=== PATIENT | male | born 1985 | race Caucasian/White ===

== ENCOUNTER 2020-04-20 19:38 | Emergency (ER) | payer BC, SELFPAY ==
[2020-04-20 19:47] VITALS: BP 147/86; PULSE 75; RESP 14; TEMP 37.1; O2SAT 99; BMI 39.7
--- NOTE | 2020-04-20 19:55 | HMH.EDUTC ---
[facility] [place] Clinical Impression: Viral syndrome, Exposure to COVID-19 virus Sinusitis Qualifiers: Sinusitis location: unspecified location Chronicity: acute Recurrence: non-recurrent Qualified Code(s): J01.90 - Acute sinusitis, unspecified Disposition: Home, Self-Care Condition on Discharge: Good Instructions: DI for Sinusitis, Preventing the Spread of Coronavirus Discharge Instructions Additional Instructions: Drink plenty of fluids. Take tylenol for pain or fever. Return if you begin to have difficulty breathing. Follow up with your regular doctor. GO TO THE ER FOR ANY WORSENING SYMPTOMS Prescriptions: Benzonatate [Tessalon Perle 100mg Cap] 100 mg PO TIDP PRN #30 cap PRN Reason: Cough Transmission Status: Received by Beam. Azithromycin [Z-Faraz 250mg Tab*] 250 mg PO UD DOSE PK #6 tab Transmission Status: Received by [facility]. Referrals: Susan Olivia APRN [Primary Care Provider] - Time of Disposition: 19:58 Medical Decision Making - Medical Records Medical records reviewed: No: I reviewed the patient's medical records. - Jose Inquiry Pt receiving controlled substance: No Vital Signs: 04/20/20 19:47 04/20/20 20:19 Temperature 98.7 F 98 F Temperature Source Oral Pulse Rate 0 L Pulse Rate [Left] 75 Respiratory Rate 14 16 Blood Pressure 000/00 L Blood Pressure [Right Arm] 147/86 H Blood Pressure Mean [Right Arm] 106 Blood Pressure Source [Right Arm] Automatic Cuff Blood Pressure Position [Right Arm] Sitting 02 Sat by Pulse Oximetry 99 Oxygen Delivery Method Room Air Orders (Tests/Meds): ORDERS Category Date Time Status Covid-19 Nasal PCR ([facility]) Routine Lab 04/20/20 19:50 [place] [facility] [place] - General Stated complaint: covid symptoms Time Seen by Provider: 04/20/20 19:55 Mode of Arrival: Ambulatory Source of Information: Patient Limitations: No Limitations Description of Symptoms (Recalled from Triage Doc. by RN): chest, head, and nasal congestion HEENT Symptoms (Recalled from RN notes): Yes (nasal congestion) Resp Symptoms (Recalled from RN notes): Yes (chest congestion) Skin Symptoms (Recalled from RN notes): No MS Symptoms (Recalled from RN notes): No Functional Status (Recalled from RN notes): na - History of Present Illness Provider Complaint: He states that since yesterday he has had sinus congestion, sore throat, cough and body aches. He denies any known sick contacts. - Related Data Previous Rx's Medication Instructions Recorded Azithromycin [Z-Faraz 250mg Tab*] 250 mg PO UD DOSE PK #6 tab 04/20/20 Benzonatate [Tessalon Perle 100mg 100 mg PO TIDP PRN #30 cap 04/20/20 Cap] Allergies Allergy/AdvReac Type Severity Reaction Status Date / Time No Known Allergies Allergy Verified 04/20/20 19:46 - Worker's Comp Is this a Worker's Comp case?: No [facility] History - Hepatitis A Screen Drug use history?: No High risk sexual behaviors?: No History of sexually transmitted infection?: No Currently employed?: No Childcare worker?: No Do you have indoor plumbing?: Yes Do you have electricity?: Yes Attestation statement:: This patient has been screened for Hepatitis A risk factors. I have reviewed the patient's past medical history: Yes - Social History Smoking Status: Current every day smoker # Packs/Day (cigarettes): 1 Alcohol Intake: never Occupational Status: employed ROS Obtained: Yes All systems reviewed & no additional complaints - Constitutional Constitutional: Reports body ache, Reports chills, Denies fever(s), Reports poor appetite, Reports malaise - Eyes Eyes: Denies eye discharge - ENT Ears, Nose, Mouth, and Throat: Reports as per HPI - Cardiovascular Cardiovascular: Denies chest pain - Respiratory Respiratory: Denies chest congestion, Reports cough, Denies dyspnea, Denies stridor, Denies wheezing - Gastrointestinal Gastrointestingal: Denies: abdominal pain, diarrhea, nausea, vo
[2020-04-20 20:19] VITALS: BP 000/00; PULSE 0; RESP 16; TEMP 36.6
--- NOTE | 2020-04-21 09:43 | PC.NURSE ---
PATIENT INFORMED OF POSITIVE COVID RESULTS
== END 2020-04-20 20:00 | disposition home or self-care (01) ==
PROVIDERS: Emergency Provider Nurse Practitioner Family; PCP Nurse Practitioner
DX: U07.1 COVID-19 (principal); J01.90 Acute sinusitis, unspecified
CPT/HCPCS: 99202; G0463; U0003

== ENCOUNTER 2023-02-22 17:55 | Emergency (ER) | payer OTHER, SELFPAY ==
[2023-02-22 17:59] VITALS: BP 148/104; PULSE 100; RESP 18; TEMP 37.1; O2SAT 100; BMI 38.7
--- NOTE | 2023-02-22 18:01 | PC.NURSE ---
DR MONSALVE AT BEDSIDE
--- NOTE | 2023-02-22 18:08 | XR_ITS ---
PROCEDURE INFORMATION: Exam: XR Left Hip Exam date and time: 02/22/2023 6:10 PM Age: 37 years old Clinical indication: Hip pain; Left hip; Additional info: L hip pain TECHNIQUE: Imaging protocol: Radiologic exam of the left hip. Views: 2 or 3 views hip with pelvis when performed. COMPARISON: No relevant prior studies available. FINDINGS: Bones/joints: No acute fracture or dislocation. Soft tissues: Unremarkable. IMPRESSION: No acute fracture or dislocation.
--- NOTE | 2023-02-22 18:09 | HMH.EDGENADL ---
Discharge Plan Disposition Patient Disposition: Home, Self-Care Prescriptions Prescriptions: New methocarbamol 500 mg tablet 1,000 mg PO Q8H Qty: 24 0RF lidocaine 5 % adhesive patch,medicated 1 patch topical DAILY Qty: 15 0RF Rx Instructions: leave on most painful area for up to 12 hrs No Action buprenorphine-naloxone 8-2 mg film 1 film SL DAILY Patient Comments: PLACE 1 FILM UNDER THE TONGUE AND ALLOW TO DISSOLVE 1 TIME EACH DAY methylprednisolone 4 mg tablets,dose pack 4 mg PO azelastine 137 mcg (0.1 %) aerosol,spray 1 spray NS BID Patient Comments: SPRAY 1 TIME INTO BOTH NOSTRILS IN THE MORNING AND AT BEDTIME FOR 10 DAYS Referrals Follow up/Referrals: Dwaine Triplett MD [Primary Care Provider] - See instructions Activity Restrictions/Add. Instructions Additional Instructions/Restrictions: At this time it was felt you are safe to be discharged home. If new or worsening symptoms please do not hesitate to return the emergency department. If symptoms persist please follow-up with your family doctor as you are able. Please take your medications as prescribed. Clinical Impressions Clinical Impression: Lumbar back pain, Sciatica Discharge ED Provider: Faustino Brannon General Adult HPI General Chief complaint: PAIN Stated complaint: LT side hip and leg pain Time Seen by Provider: 02/22/23 18:00 Mode of Arrival: Ambulatory Source of Information: Patient Limitations: No Limitations Description of Symptoms (Recalled from ER Triage Doc. by RN): left leg/hip pain for 2 weeks History of Present Illness HPI narrative: Patient is a 37-year-old male on Suboxone who presents emergency department for evaluation of left hip pain. History is obtained by patient at bedside. Patient works in heavy machinery and when he was stepping down had a shooting pain over his left lateral gluteus that intermittently shoots down his left lateral leg, sometimes into the feet. Patient has been able to bear weight however has intermittent significant symptoms causing her to present here for continued evaluation. No trauma. No reported incontinence. No other acute complaints at this time. Related Data Home Medications Medication Instructions Recorded Confirmed azelastine 137 mcg (0.1 %) nasal 1 spray intranasal BID 09/17/21 09/17/21 spray aerosol buprenorphine 8 mg-naloxone 2 mg 1 film sublingual DAILY 09/17/21 09/17/21 sublingual film methylprednisolone 4 mg tablets in 4 mg PO 09/17/21 09/17/21 a dose pack Previous Rx's Medication Instructions Recorded lidocaine 5 % topical patch 1 patch topical DAILY back pain 02/22/23 #15 ea methocarbamol 500 mg tablet 1,000 mg PO Q8H back spasm #24 tabs 02/22/23 Allergies Allergy/AdvReac Type Severity Reaction Status Date / Time No Known Allergies Allergy Verified 09/17/21 13:43 [facility] Disclaimer: The information contained in this section may have been updated after the patient was seen, as this information can be updated by other users. Social History Smoking Status: Current every day smoker alcohol intake: never substance use type: former substance user current occupational status: employed Travel in the last 8 weeks: None household members: spouse and children housing: house ROS Obtained: Yes Systems reviewed as appropriate & no additional complaints except as documented Physical Exam General General appearance: alert and in no apparent distress Head Head exam: atraumatic and normocephalic Eye Eye exam: Present PERRL ENT ENT exam: Present mucous membranes moist Neck Neck exam: Present normal inspection Chest Chest inspection: Present normal inspection and symmetric chest wall rise Respiratory Respiratory exam: Absent respiratory distress Cardiovascular Cardiovascular exam: Present regular rate and normal rhythm Abdominal Exam Abdominal exam: Present soft Extremities Exam Extremities exam: Present normal inspection and other (5 out of 5 strength bilateral lower extremities at the hip, knee, ankle. 2+ dorsal pedal plus on the left.) Back Exam Back exam: Absent tenderness (No midline tenderness) Neurological Exam Neurological exam: Present alert Psychiatric Psychiatric exam: Present normal affect Skin Skin exam: Present warm and dry Medical Decision Making Jose Inquiry Pt receiving controlled substance: No Vital Signs: 02/22/23 17:59 Temperature 98.7 F Temperature Source Oral Pulse Rate [Right Radial] 100 H Respiratory Rate 18 Blood Pressure [Right Arm] 148/104 H Blood Pressure Mean [Right Arm] 118 02 Sat by Pulse Oximetry 100 Oxygen Delivery Method Room Air Orders (Tests/Meds): ED MEDICATIONS Discontinued Medications Generic Name Dose Route Start Last Admin Trade Name Freq PRN Reason Stop Dose Admin Acetaminophen 1,000 mg 02/22/23 18:06 02/22/23 18:13 Acetaminophen 500mg Tab PO 02/22/23 18:07 1,000 mg ONCE ONE Administration Ketorolac Tromethamine 30 mg 02/22/23 18:06 02/22/23 18:14 Ketorolac 30mg/Ml Vial IM 02/22/23 18:07 30 mg ONCE ONE Administration Lidocaine 1 each 02/22/23 18:06 02/22/23 18:14 Lidocaine 5% Transdermal Patch TP 02/22/23 18:07 1 each ONCE ONE Administration Methocarbamol 1,000 mg 02/22/23 18:07 02/22/23 18:14 Methocarbamol 500mg Tablet PO 02/22/23 18:08 1,000 mg ONCE ONE Administration ORDERS Category Date Time Status Hip XR left minimum 2 views [XR hip LT 2-3V w/pelvis] Exams 02/22/23 18:08 Taken Stat Medical Decision Narrative: In summary patient is a 37-year-old male past medical history described above presents emergency department for evaluation of atraumatic hip pain. Patient is hemodynamically stable nontoxic-appearing upon arrival, afebrile. Differential diagnosis includes lumbar ago, sciatica, among others. Given the patient has no red flag symptoms workup with labs and CT imaging was considered but will be deferred. Limited survey will be conducted with plain film of the left hip. Initial inventions include Tylenol, Toradol, methocarbamol, lidocaine patch. X-ray informally interpreted by me, no acute displaced fracture or hip dislocation, no obvious large sclerotic or lytic lesions. Given this patient is appropriate for discharge at this time will be discharged with a course of methocarbamol and lidocaine patches and was educated on projected course and was given return precautions and instructed to follow-up with PCP if symptoms persist Critical Care Critical Care Time Critical Care Time: No
[2023-02-22] MEDS: ACETAMINOPHEN 500MG TAB 1000 MG PO (18:13)
[2023-02-22] MEDS: LIDOCAINE 5% TRANSDERMAL PATCH 1 EACH TP (18:14)
[2023-02-22] MEDS: KETOROLAC 30MG/ML VIAL 30 MG IM (18:14)
[2023-02-22] MEDS: METHOCARBAMOL 500MG TABLET 1000 MG PO (18:14)
--- NOTE | 2023-02-22 18:17 | PC.NURSE ---
PT TO XR
--- NOTE | 2023-02-22 18:24 | PC.NURSE ---
PT RETURNED FROM XR
[2023-02-22 18:39] VITALS: BP 157/91; PULSE 100; RESP 20; TEMP 36.9
== END 2023-02-22 18:40 | disposition home or self-care (01) ==
PROVIDERS: Emergency Provider Emergency Medicine; PCP Family Medicine
DX: M54.42 Lumbago with sciatica, left side (principal); M25.552 Pain in left hip; M79.605 Pain in left leg; F17.210 Nicotine dependence, cigarettes, uncomplicated; X50.0XXA Overexertion from strenuous movement or load, initial encounter
CPT/HCPCS: 73502; 96372; 99283

== ENCOUNTER 2023-09-17 04:41 | Inpatient (IN) | payer OTHER, SELFPAY ==
[2023-09-17] VITALS (18 sets, daily range): BP systolic 123–148; BP diastolic 65–96; PULSE 87–130; RESP 16–20; TEMP 36.6–37.4; O2SAT 88–95; BMI 39.9; BMI 38.5
--- NOTE | 2023-09-17 04:47 | XR_ITS ---
PROCEDURE INFORMATION: Exam: XR Chest Exam date and time: 09/17/2023 4:48 AM Age: 38 years old Clinical indication: Cough and shortness of breath; Additional info: SOA cough covid TECHNIQUE: Imaging protocol: Radiologic exam of the chest. Views: 2 views. COMPARISON: No relevant prior studies available. FINDINGS: Lungs: Bilateral patchy predominantly lower and central airspace opacities. Pleural spaces: Unremarkable. No pleural effusion. No pneumothorax. Heart/Mediastinum: Unremarkable. No cardiomegaly. Bones/joints: Unremarkable. IMPRESSION: Findings which can be seen in COVID type pneumonia, multifocal bacterial pneumonia. Correlate clinically.
--- NOTE | 2023-09-17 04:55 | PC.NURSE ---
Kathy in [facility] notified of VBG in lab
[2023-09-17 05:01] LABS: Lactate Venous 1.6 mmol/L (0.4-2.0); VBG Base Excess 1.1 mmol/L (-2.4-2.3); VBG HCO3 25.6 mmol/L (23-30); VBG Oxygen Saturation 77.3 % (50-70); VBG PCO2 40.5 mmol/L (35-51); VBG PH 7.42 mmol/L (7.31-7.41); VBG PO2 41.5 mmol/L (28-40); VBG Total CO2 26.8 mmol/L (23-27)
[2023-09-17 05:04] LABS: Basophils % 0.2 % (0.1-2.0); Eosinophils % 0.3 % (0.1-12.0); Hematocrit 43.3 % (42.0-52.0); Hemoglobin 14.5 g/dL (14.1-18.0); Lymphocytes # 0.8 K/mm3 (0.7-4.5); Lymphocytes % 7.4 % (10-50); Mean Corpuscular HGB Conc 33.5 g/dL (31.8-35.4); Mean Corpuscular Hemoglobin 29.6 pg (27.0-31.2); Mean Corpuscular Volume 88.4 fl (80-94); Mean Platelet Volume 7.7 fl (7.4-10.4); Monocytes # 0.3 K/mm3 (0.1-1.0); Monocytes % 2.9 % (1.7-9.3); Neutrophils # 10.2 K/mm3 (1.8-7.8); Neutrophils % 89.3 % (37.0-80.0); Platelet Count 240 K/mm3 (142-424); Red Blood Count 4.89 M/mm3 (4.60-6.20); Red Cell Distribution Width 14.5 % (11.5-17.5); White Blood Count 11.5 K/mm3 (4.8-10.8)
--- NOTE | 2023-09-17 05:04 | ECG_ITS ---
APPROVED REPORT Exam: Resting ECG HR:105 bpm ECG Measurements Heart Rate 105 AXES CA 172 P 13 QRSd 109 QRS 7 QT 346 T 44 QTc 407 Conclusion SINUS TACHYCARDIA NONSPECIFIC ST & T-WAVE ABNORMALITY ABNORMAL RHYTHM ECG Electronically signed by : LISA VILLEDA, 09/17/2023 07:28:39
[2023-09-17 05:06] LABS: Albumin Level 4.4 g/dl (3.5-5.0); Chloride 101 mmol/L (98-107); Potassium 4.3 mmoL/L (3.5-5.1); Sodium 136 mmol/L (136-145)
[2023-09-17 05:08] LABS: Blood Urea Nitrogen 12 mg/dl (9-20); Creatinine Clearance Estimated 300 mL/min (50-200); Estimated Glomerular Filt Rate 128 ml/min (>60); GFR (African American) 154 ML/MIN (>60)
[2023-09-17 05:09] LABS: Alanine Aminotransferase 53 U/L (12-78); Albumin/Globulin Ratio 1.3 (1.1-1.8); Alkaline Phosphatase 75 U/L (38-126); Anion Gap 10.3 mEq/L (5-15); Aspartate Amino Transferase 38 U/L (17-59); Bilirubin,Total 1.3 mg/dl (0.2-1.3); Calcium 8.6 mg/dl (8.4-10.2); Carbon Dioxide 29 mmol/L (22.0-30.0); Globulin 3.4 g/dL (1.3-3.2); Glucose 138 mg/dl (74-100); Total Protein,Serum 7.8 g/dl (6.3-8.2)
[2023-09-17] MEDS: LACTATED RINGERS 1000ML 1,000 ML 999 ML IV (05:09)
[2023-09-17 05:10] LABS: INR 0.98 (0.9-1.1)
[2023-09-17 05:12] LABS: MANUAL DIFFERENTIAL MANUAL DIFFERENTIAL (MANUAL DIFF)
[2023-09-17] MEDS: IPRATROPIUM/ALBUTEROL 3 ML NEB 9 ML IH (05:12)
--- NOTE | 2023-09-17 05:15 | HMH.EDGENADL ---
Discharge Plan Disposition Patient Disposition: Admitted Chief Complaint: Upper Respiratory Infection Prescriptions Prescriptions: No Action albuterol sulfate 90 mcg/actuation HFA aerosol inhaler 2 puff inhalation Q6H PRN (Reason: shortness of breath or wheezing) Qty: 6.7 2RF buprenorphine-naloxone 2-0.5 mg film 1 film sublingual Patient Comments: PLACE 1 FILM UNDER THE TONGUE AND ALLOW TO DISSOLVE 1 TIME EACH DAY sulfamethoxazole-trimethoprim 800-160 mg tablet 1 tab PO BID Qty: 20 0RF jttewztlixobztz-vhrdkefoh-PF [Bromfed DM] 2-30-10 mg/5 mL syrup 10 ml PO Q4-6H PRN (Reason: cold symptoms) Qty: 473 1RF prednisone 50 mg tablet 50 mg PO DAILY Qty: 7 0RF Referrals Follow up/Referrals: Provider,Referral, [Primary Care Provider] - See instructions Clinical Impressions Clinical Impression: Pneumonia due to COVID-19 virus, Acute hypoxemic respiratory failure Print Language Print Language: French Discharge ED Provider: Declan Freire General Adult HPI <Beatriz Interiano MD - Last Filed: 09/17/23 07:32> General Chief complaint: Upper Respiratory Infection Stated complaint: getting over covid, chest tightness Time Seen by Provider: 09/17/23 04:47 Mode of Arrival: Ambulatory Source of Information: Patient Limitations: No Limitations Description of Symptoms (Recalled from ER Triage Doc. by RN): Pt. presented to the ED with c/o cough, congestion, shortness of breath, chest tightness. Pt. had a positive COVID home test Thursday. History of Present Illness HPI narrative: 38-year-old male presents to the ER for concerns of cough, congestion, difficulty breathing, chest tightness, pain in his chest with coughing. Patient states he had a positive COVID test Thursday. He has been prescribed Bromfed and prednisone. He has been taking these. Patient states he has had symptoms since , tested positive on Thursday, but continues to feel worse. He states he did have fever yesterday, has not had fever today. Patient reports family history of asthma. My review of previous records demonstrates he has been treated with albuterol in the past. He states he has been taking this every 6 hours including approximately 1 hour prior to arrival. Family at bedside reports patient was wheezing quite a bit yesterday. Patient presented hypoxic on room air to the ER. He has no history of blood clot, no personal cardiac history. Related Data Home Medications ?Medication ?Instructions ?Recorded ?Confirmed buprenorphine 2 mg-naloxone 0.5 mg 1 film sublingual 04/23/23 09/01/23 sublingual film Previous Rx's ?Medication ?Instructions ?Recorded albuterol sulfate 90 mcg/actuation 2 puff inhalation Q6H PRN 09/01/23 aerosol inhaler shortness of breath or wheezing #6.7 grams sulfamethoxazole 800 1 tab PO BID #20 tabs 09/07/23 mg-trimethoprim 160 mg tablet pogqtqvldpxzxaz-pvmjrtpvpvuzotu-TN 10 ml PO Q4-6H PRN cold symptoms 09/15/23 2 mg-30 mg-10 mg/5 mL oral syrup #473 mL (Bromfed DM) prednisone 50 mg tablet 50 mg PO DAILY #7 tabs 09/16/23 Allergies Allergy/AdvReac Type Severity Reaction Status Date / Time No Known Allergies Allergy Verified 09/01/23 14:41 PFSH <Beatriz Interiano MD - Last Filed: 09/17/23 07:32> [facility] Disclaimer: The information contained in this section may have been updated after the patient was seen, as this information can be updated by other users. Medical History No significant family history Lumbar back pain Sciatica Surgical History No significant past surgical history Social History Smoking Status: Current every day smoker second hand exposure: No alcohol intake: never substance use type: former substance user current occupational status: employed Travel in the last 8 weeks: None household members: spouse and children housing: house marital status: <Beatriz Interiano MD - Last Filed: 09/17/23 07:32> ROS Obtained: Yes All systems reviewed & no additional complaints except as documented Constitutional Constitutional: Reports fever(s), Denies headache(s) and Denies weakness Eyes Eyes: Denies change in vision ENT Ears, Nose, Mouth, and Throat: Denies dizziness, Denies headache(s), Denies nasal congestion and Denies sore throat Cardiovascular Cardiovascular: Reports chest pain, Denies dyspnea and Denies leg edema Respiratory Respiratory: Reports shortness of breath, Reports cough, Reports non-productive cough and Denies dyspnea Gastrointestinal Gastrointestingal: Denies constipation, diarrhea, nausea or vomiting Genitourinary Male Genitourinary: Denies difficulty urinating Musculoskeletal Musculoskeletal: Denies arthralgias, Denies myalgias, Denies numbness and Denies tingling Integumentary/Breasts Skin/Breast: Denies change in pigmentation Neurologic Neurologic: Denies dizziness, Denies headache(s), Denies numbness, Denies tingling and Denies weakness Physical Exam <Beatriz Interiano MD - Last Filed: 09/17/23 07:32> General General appearance: alert, in no apparent distress and obese Head Head exam: atraumatic and normocephalic Eye Eye exam: Present PERRL and EOMI ENT ENT exam: Present mucous membranes moist Neck Neck exam: Present normal inspection and full ROM Chest Chest inspection: Present symmetric chest wall rise Respiratory Respiratory exam: Absent respiratory distress (Mild tachypnea but not in respiratory distress, saturating 88% on room air, significantly diminished breath sounds throughout), wheezes or stridor Cardiovascular Cardiovascular exam: Present normal rhythm and tachycardia Abdominal Exam Abdominal exam: Present soft; Absent distention, tenderness, guarding or rebound Extremities Exam Extremities exam: Present full ROM Neurological Exam Neurological exam: Present alert and oriented X3; Absent motor sensory deficit Psychiatric Psychiatric exam: Present normal affect and normal mood Skin Skin exam: Present warm and dry Medical Decision Making <Beatriz Interiano MD - Last Filed: 09/17/23 07:32> Medical Records Medical records reviewed: Yes I reviewed the patient's medical records. MR Comment: See HPI Jose Inquiry Pt receiving controlled substance: No Vital Signs: 09/17/23 04:47 09/17/23 05:13 09/17/23 05:15 Temperature 99.2 F Temperature Source Oral Pulse Rate 102 H 104 H Pulse Rate [Left] 117 H Respiratory Rate 20 Blood Pressure 135/75 Blood Pressure [Left Arm] 146/93 H Blood Pressure Mean [Left Arm] 110 Blood Pressure Source Blood Pressure Source [Left Arm] Automatic Cuff Blood Pressure Position Blood Pressure Position [Left Arm] Sitting 02 Sat by Pulse Oximetry 88 L 95 Oxygen Delivery Method Room Air Nasal Cannula Oxygen Flow Rate (LPM) 2 09/17/23 05:15 09/17/23 05:31 09/17/23 06:00 Temperature Temperature Source Pulse Rate 104 H 115 H 123 H Pulse Rate [Left] Respiratory Rate Blood Pressure 147/75 H 146/73 H Blood Pressure [Left Arm] Blood Pressure Mean [Left Arm] Blood Pressure Source Blood Pressure Source [Left Arm] Blood Pressure Position Blood Pressure Position [Left Arm] 02 Sat by Pulse Oximetry 93 L 93 L Oxygen Delivery Method Oxygen Flow Rate (LPM) 09/17/23 06:45 09/17/23 07:15 09/17/23 07:20 Temperature Temperature Source Pulse Rate 128 H 130 H 130 H Pulse Rate [Left] Respiratory Rate 20 20 Blood Pressure 148/75 H Blood Pressure [Left Arm] Blood Pressure Mean [Left Arm] Blood Pressure Source Automatic Cuff Blood Pressure Source [Left Arm] Blood Pressure Position Sitting Blood Pressure Position [Left Arm] 02 Sat by Pulse Oximetry 93 L 88 L 90 L Oxygen Delivery Method Nasal Cannula Nasal Cannula Nasal Cannula Oxygen Flow Rate (LPM) 2 2 4 Lab Data Lab Results 09/17/23 04:48: VBG pH 7.42 H, VBG pCO2 40.5, VBG pO2 41.5 H, VBG HCO3 25.6, VBG Total CO2 26.8, VBG O2 Saturation 77.3 H, VBG Base Excess 1.1, VBG Lactic Acid 1.6 09/17/23 04:55: WBC 11.5 H, RBC 4.89, Hgb 14.5, Hct 43.3, MCV 88.4, MCH 29.6, MCHC 33.5, RDW 14.5, Plt Count 240, MPV 7.7, Neut % (Auto) 89.3 H, Lymph % (Auto) 7.4 L, [place] % (Auto) 2.9, Eos % (Auto) 0.3, Baso % (Auto) 0.2, Neut # (Auto) 10.2 H, Lymph # (Auto) 0.8, [place] # (Auto) 0.3, Eos # (Auto) 0.0, Baso # (Auto) 0.0, Total Counted 100, Neutrophils % (Manual) 88 H, Lymphocytes % (Manual) 11, Monocytes % (Manual) 1 L, Platelet Estimate Normal, RBC Morphology Normal, PT 11.0, INR 0.98, D-Dimer 0.73 H, Sodium 136, Potassium 4.3, Chloride 101, Carbon Dioxide 29, Anion Gap 10.3, BUN 12, Creatinine 0.70, Estimated Creat Clear 300, Estimated GFR 128, Est GFR ( Amer) 154, Glucose 138 H, Calcium 8.6, Total Bilirubin 1.3, AST 38, ALT 53, Alkaline Phosphatase 75, Troponin I < 0.01, NT-Pro-B Natriuret Pep 99.8, Total Protein 7.8, Albumin 4.4, Globulin 3.4 H, Albumin/Globulin Ratio 1.3 09/17/23 04:55 09/17/23 04:55 Orders (Tests/Meds): ED MEDICATIONS Discontinued Medications Generic Name Dose Route Start Last Admin Trade Name Freq PRN Reason Stop Dose Admin Albuterol Sulfate 20 mg 09/17/23 06:00 09/17/23 05:55 Albuterol 0.083% 2.5 Mg/3 Ml [facility] 09/17/23 06:01 20 mg ONCE ONE Administration Albuterol/Ipratropium 9 ml 09/17/23 04:58 09/17/23 05:12 Ipratropium/Albuterol 3 Ml [facility] 09/17/23 04:59 9 ml ONCE ONE Administration Doxycycline Hyclate 100 mg 09/17/23 09:00 09/17/23 05:29 Doxycycline Hycl 100 Mg Tablet PO 09/27/23 08:59 100 mg BID FLAKO Administration Lactated Ringer's 1,000 mls @ 999 mls/hr 09/17/23 04:58 09/17/23 05:09 Lactated Ringer's 1000 Ml Bag IV 09/17/23 05:58 999 mls/hr .Q1H1M ONE Administration Ceftriaxone Sodium 2 gm/ 50 mls @ 100 mls/hr 09/17/23 05:07 09/17/23 05:29 Sodium Chloride IV 09/17/23 05:36 100 mls/hr ONCE ONE Administration Iopamidol 80 ml 09/17/23 05:52 09/17/23 05:53 Iopamidol-370 (76%);100ml Bottle IV 09/17/23 05:53 80 ml ONCE ONE Administration Sodium Chloride 10 ml 09/17/23 05:52 09/17/23 05:53 Sodium Chloride 0.9% 10ml Syr (Rad Only) IV 09/17/23 05:53 10 ml ONCE ONE Administration ORDERS Category Date Time Status CT angio chest PE protocol Stat Cat Scan 09/17/23 05:29 Completed CXR 2 view (NOT portable) [XR chest 2V] Stat Exams 09/17/23 04:47 Completed BNP [NT Pro Brain Natriuretic Pep.] Stat Lab 09/17/23 04:55 Completed CBC w/Auto Diff [Complete Blood Count Auto Diff] Stat Lab 09/17/23 04:55 Completed CMP [Comprehensive Metabolic Panel] Stat Lab 09/17/23 04:55 Completed D-Dimer Stat Lab 09/17/23 04:55 Completed PT INR [Prothrombin Time INR] Stat Lab 09/17/23 04:55 Completed Trop I [Troponin I] Stat Lab 09/17/23 04:55 Completed Troponin I Q3H Lab 09/17/23 08:00 Ordered Troponin I Q3H Lab 09/17/23 11:00 Ordered VBG [Venous Blood Gas] Stat RT 09/17/23 04:48 Completed Medical Decision Narrative: In summary, this 38-year-old male presents to the emergency department today with cough, chest pain, shortness of breath in the setting of recent positive COVID test. On initial evaluation patient is mildly tachycardic, hypoxic on room air, slightly tachypneic, diminished breath sounds throughout, no peripheral edema, no other abnormalities on exam. Differential diagnosis includes but is not limited to viral syndrome, viral pneumonia, bacterial pneumonia, fluid overload, ACS, PE, considered ARDS but have lower suspicion for this given his only mildly ill clinical presentation on arrival. Based on these concerns, I ordered cardiac workup, two-view chest x-ray, serum labs. ECG personally interpreted demonstrates sinus tachycardia, rate 105, normal axis, normal KS and QTc, no STEMI. Patient received DuoNebs, IV fluids for treatment. Labs personally reviewed demonstrate mild leukocytosis, no anemia, PT/INR normal, CMP PE with no actionable electrolyte abnormalities, no findings of of kidney or liver dysfunction, VBG with pH 7.42, no hypercarbia. D-dimer positive, CTA PE ordered. BNP normal. XR personally interpreted demonstrates diffuse patchy infiltrate on my personal interpretation, see radiology read for final interpretation. Given patient's presenting symptoms and findings on chest x-ray, I am treating him with Rocephin and doxycycline. CTAP personally interpreted does not demonstrate obvious large PE but I do appreciate findings consistent with COVID-pneumonia. Contrast timing was poor. After initial DuoNeb's, patient had improvement of air movement, no wheezing, he felt improved so continuous albuterol was administered. He has had increasing tachycardia with these beta agonists which is not surprising. After completing all of these breathing treatments, patient was persistently hypoxic on room air, he is now on 4 L nasal cannula. Likely medication induced VQ mismatch. He requires admission for COVID-pneumonia management. He is already on 50 mg of prednisone orally for the last 2 days, he has not received therefore I have not administered additional steroids in the ER. Patient amenable to plan of admission, hospitalist has been called multiple times for over an hour with no success in reaching them. Patient handed off to Dr. Freire for continued management in anticipation of admission to the hospital, but pending hospitalist conversation. <Declan Freire MD - Last Filed: 09/17/23 07:41> Vital Signs: 09/17/23 04:47 09/17/23 05:13 09/17/23 05:15 Temperature 99.2 F Temperature Source Oral Pulse Rate 102 H 104 H Pulse Rate [Left] 117 H Respiratory Rate 20 Blood Pressure 135/75 Blood Pressure [Left Arm] 146/93 H Blood Pressure Mean [Left Arm] 110 Blood Pressure Source Blood Pressure Source [Left Arm] Automatic Cuff Blood Pressure Position Blood Pressure Position [Left Arm] Sitting 02 Sat by Pulse Oximetry 88 L 95 Oxygen Delivery Method Room Air Nasal Cannula Oxygen Flow Rate (LPM) 2 09/17/23 05:15 09/17/23 05:31 09/17/23 06:00 Temperature Temperature Source Pulse Rate 104 H 115 H 123 H Pulse Rate [Left] Respiratory Rate Blood Pressure 147/75 H 146/73 H Blood Pressure [Left Arm] Blood Pressure Mean [Left Arm] Blood Pressure Source Blood Pressure Source [Left Arm] Blood Pressure Position Blood Pressure Position [Left Arm] 02 Sat by Pulse Oximetry 93 L 93 L Oxygen Delivery Method Oxygen Flow Rate (LPM) 09/17/23 06:45 09/17/23 07:15 09/17/23 07:20 Temperature Temperature Source Pulse Rate 128 H 130 H 130 H Pulse Rate [Left] Respiratory Rate 20 20 Blood Pressure 148/75 H Blood Pressure [Left Arm] Blood Pressure Mean [Left Arm] Blood Pressure Source Automatic Cuff Blood Pressure Source [Left Arm] Blood Pressure Position Sitting Blood Pressure Position [Left Arm] 02 Sat by Pulse Oximetry 93 L 88 L 90 L Oxygen Delivery Method Nasal Cannula Nasal Cannula Nasal Cannula Oxygen Flow Rate (LPM) 2 2 4 Lab Data Lab Results 09/17/23 04:48: VBG pH 7.42 H, VBG pCO2 40.5, VBG pO2 41.5 H, VBG HCO3 25.6, VBG Total CO2 26.8, VBG O2 Saturation 77.3 H, VBG Base Excess 1.1, VBG Lactic Acid 1.6 09/17/23 04:55: WBC 11.5 H, RBC 4.89, Hgb 14.5, Hct 43.3, MCV 88.4, MCH 29.6, MCHC 33.5, RDW 14.5, Plt Count 240, MPV 7.7, Neut % (Auto) 89.3 H, Lymph % (Auto) 7.4 L, [place] % (Auto) 2.9, Eos % (Auto) 0.3, Baso % (Auto) 0.2, Neut # (Auto) 10.2 H, Lymph # (Auto) 0.8, [place] # (Auto) 0.3, Eos # (Auto) 0.0, Baso # (Auto) 0.0, Total Counted 100, Neutrophils % (Manual) 88 H, Lymphocytes % (Manual) 11, Monocytes % (Manual) 1 L, Platelet Estimate Normal, RBC Morphology Normal, PT 11.0, INR 0.98, D-Dimer 0.73 H, Sodium 136, Potassium 4.3, Chloride 101, Carbon Dioxide 29, Anion Gap 10.3, BUN 12, Creatinine 0.70, Estimated Creat Clear 300, Estimated GFR 128, Est GFR ( Amer) 154, Glucose 138 H, Calcium 8.6, Total Bilirubin 1.3, AST 38, ALT 53, Alkaline Phosphatase 75, Troponin I < 0.01, NT-Pro-B Natriuret Pep 99.8, Total Protein 7.8, Albumin 4.4, Globulin 3.4 H, Albumin/Globulin Ratio 1.3 Orders (Tests/Meds): ED MEDICATIONS Discontinued Medications Generic Name Dose Route Start Last Admin Trade Name Freq PRN Reason Stop Dose Admin Albuterol Sulfate 20 mg 09/17/23 06:00 09/17/23 05:55 Albuterol 0.083% 2.5 Mg/3 Ml [facility] 09/17/23 06:01 20 mg ONCE ONE Administration Albuterol/Ipratropium 9 ml 09/17/23 04:58 09/17/23 05:12 Ipratropium/Albuterol 3 Ml [facility] 09/17/23 04:59 9 ml ONCE ONE Administration Doxycycline Hyclate 100 mg 09/17/23 09:00 09/17/23 05:29 Doxycycline Hycl 100 Mg Tablet PO 09/27/23 08:59 100 mg BID FLAKO Administration Lactated Ringer's 1,000 mls @ 999 mls/hr 09/17/23 04:58 09/17/23 05:09 Lactated Ringer's 1000 Ml Bag IV 09/17/23 05:58 999 mls/hr .Q1H1M ONE Administration Ceftriaxone Sodium 2 gm/ 50 mls @ 100 mls/hr 09/17/23 05:07 09/17/23 05:29 Sodium Chloride IV 09/17/23 05:36 100 mls/hr ONCE ONE Administration Iopamidol 80 ml 09/17/23 05:52 09/17/23 05:53 Iopamidol-370 (76%);100ml Bottle IV 09/17/23 05:53 80 ml ONCE ONE Administration Sodium Chloride 10 ml 09/17/23 05:52 09/17/23 05:53 Sodium Chloride 0.9% 10ml Syr (Rad Only) IV 09/17/23 05:53 10 ml ONCE ONE Administration ORDERS Category Date Time Status CT angio chest PE protocol Stat Cat Scan 09/17/23 05:29 Completed CXR 2 view (NOT portable) [XR chest 2V] Stat Exams 09/17/23 04:47 Completed BNP [NT Pro Brain Natriuretic Pep.] Stat Lab 09/17/23 04:55 Completed CBC w/Auto Diff [Complete Blood Count Auto Diff] Stat Lab 09/17/23 04:55 Completed CMP [Comprehensive Metabolic Panel] Stat Lab 09/17/23 04:55 Completed D-Dimer Stat Lab 09/17/23 04:55 Completed PT INR [Prothrombin Time INR] Stat Lab 09/17/23 04:55 Completed Trop I [Troponin I] Stat Lab 09/17/23 04:55 Completed Troponin I Q3H Lab 09/17/23 08:00 Ordered Troponin I Q3H Lab 09/17/23 11:00 Ordered VBG [Venous Blood Gas] Stat RT 09/17/23 04:48 Completed Medical Decision Narrative: In summary, this 38-year-old male presents to the emergency department today with cough, chest pain, shortness of breath in the setting of recent positive COVID test. On initial evaluation patient is mildly tachycardic, hypoxic on room air, slightly tachypneic, diminished breath sounds throughout, no peripheral edema, no other abnormalities on exam. Differential diagnosis includes but is not limited to viral syndrome, viral pneumonia, bacterial pneumonia, fluid overload, ACS, PE, considered ARDS but have lower suspicion for this given his only mildly ill clinical presentation on arrival. Based on these concerns, I ordered cardiac workup, two-view chest x-ray, serum labs. ECG personally interpreted demonstrates sinus tachycardia, rate 105, normal axis, normal KS and QTc, no STEMI. Patient received DuoNebs, IV fluids for treatment. Labs personally reviewed demonstrate mild leukocytosis, no anemia, PT/INR normal, CMP PE with no actionable electrolyte abnormalities, no findings of of kidney or liver dysfunction, VBG with pH 7.42, no hypercarbia. D-dimer positive, CTA PE ordered. BNP normal. XR personally interpreted demonstrates diffuse patchy infiltrate on my personal interpretation, see radiology read for final interpretation. Given patient's presenting symptoms and findings on chest x-ray, I am treating him with Rocephin and doxycycline. CTAP personally interpreted does not demonstrate obvious large PE but I do appreciate findings consistent with COVID-pneumonia. Contrast timing was poor. After initial DuoNeb's, patient had improvement of air movement, no wheezing, he felt improved so continuous albuterol was administered. He has had increasing tachycardia with these beta agonists which is not surprising. After completing all of these breathing treatments, patient was persistently hypoxic on room air, he is now on 4 L nasal cannula. Likely medication induced VQ mismatch. He requires admission for COVID-pneumonia management. He is already on 50 mg of prednisone orally for the last 2 days, he has not received therefore I have not administered additional steroids in the ER. Patient handed off to Dr. Freire for continued management in anticipation of admission to the hospital, but pending hospitalist conversation. Tani: I assumed primary responsibility for this patient after signout from previous physician. On my independent interpretation of results, patient has mild leukocytosis, largely nonactionable labs overall. Patient D-dimer only mildly elevated just over 0.7, but CT PE ordered given degree of hypoxemia. This was negative. On reevaluation, patient still tachycardic in the 120s, saturating in the mid 80%'s on room air, 92% on nasal cannula 4 L. Hospitalist contacted and case was discussed at length. Because patient high risk for clinical decompensation, deemed appropriate for inpatient admission. Results were relayed to patient who voiced understanding and patient was agreeable to inpatient admission and management. Patient was admitted to the hospital for further definitive management. Critical Care <Beatriz Interiano MD - Last Filed: 09/17/23 07:32> Critical Care Time Critical Care Time: No <Declan Freire MD - Last Filed: 09/17/23 07:41> Critical Care Time Critical Care Time: Yes (Respiratory) Attestation: On 09/17/23, the high probability of a clinically significant, sudden or life threatening deterioration of the following system(s) required my full and direct attention, intervention and personal management. The time I documented below is in addition to time spent performing reported procedures but includes the following listed in this critical care notation. Total Time Total Critical Care Time: 45
[2023-09-17 05:21] LABS: Troponin I < 0.01 ng/ml (0.00-0.034)
[2023-09-17 05:26] LABS: D-Dimer 0.73 ug/mL (0.0-0.5)
[2023-09-17] MEDS: DOXYCYCLINE HYCL 100 MG TABLET PO (05:29)
[2023-09-17] MEDS: CEFTRIAXONE SODIUM 2 GM in 0.9 % SODIUM CHLORIDE 50 ML IV (05:29)
--- NOTE | 2023-09-17 05:29 | CT_ITS ---
PROCEDURE INFORMATION: Exam: CTA Chest With Contrast Exam date and time: 09/17/2023 5:48 AM Age: 38 years old Clinical indication: Shortness of breath; Additional info: SOA hypoxia tachy positive dimer covid+ TECHNIQUE: Imaging protocol: Computed tomographic angiography of the chest with contrast. Exam focused on the arteries. 3D rendering (Not supervised by radiologist): MIP and/or 3D reconstructed images were created by the technologist. Radiation optimization: All CT scans at this facility use at least one of these dose optimization techniques: automated exposure control; mA and/or kV adjustment per patient size (includes targeted exams where dose is matched to clinical indication); or iterative reconstruction. Contrast material: ISOVUE; Contrast volume: 80 ml; Contrast route: INTRAVENOUS (IV); COMPARISON: CR XR CHEST 2V 09/17/2023 4:48 AM FINDINGS: Pulmonary arteries: Contrast bolus is not well timed for assessment of the pulmonary arterial vasculature, that being said no filling defect within the main pulmonary artery, right pulmonary artery, left pulmonary artery. No secondary evidence for hemodynamically significant pulmonary embolus. Aorta: Small focus calcified atherosclerotic disease of the aortic arch. Lungs: Ground-glass opacities in the anterior left upper apex. Ground-glass opacities in a bronchovascular pattern of the inferior left lower lobe and lingula. Similar-appearing however less extensive/less severe appearance at the bilateral medial/central lung bases. Pleural spaces: Unremarkable. No pneumothorax. No pleural effusion. Heart: Unremarkable. No cardiomegaly. No pericardial effusion. Lymph nodes: Unremarkable. No enlarged lymph nodes. Bones/joints: Early degenerative change of the thoracolumbar spine. Soft tissues: Unremarkable. IMPRESSION: 1. Limited study due to contrast bolus timing. Within this limitation, no filling defect within the main pulmonary artery, right pulmonary artery, left pulmonary artery. No secondary evidence for hemodynamically significant pulmonary embolus. 2. Nonspecific lung findings, however compatible with COVID pneumonia. 3. Additional nonacute findings as above.
[2023-09-17 05:32] LABS: NT Pro Brain Natriuretic Pep. 99.8 pg/mL (0-125)
[2023-09-17] MEDS: SODIUM CHLORIDE 0.9% 10ML SYR (RAD ONLY) 10 ML IV ×2 (05:53→14:18)
[2023-09-17] MEDS: IOPAMIDOL-370 (76%);100ML BOTTLE 80 ML IV ×2 (05:53→14:18)
[2023-09-17] MEDS: ALBUTEROL 0.083% 2.5 MG/3 ML NEB 20 MG IH (05:55)
[2023-09-17 06:17] LABS: Lymphocytes % 11 % (10-50); Monocytes % 1 % (2-9); Neutrophils % 88 % (42-76); Total Cells Counted 100
[2023-09-17 06:18] LABS: Platelet Estimate Normal; RBC Morphology Normal
--- NOTE | 2023-09-17 06:47 | PC.NURSE ---
Pt. to be admitted. awaiting hospitalist call back .
--- NOTE | 2023-09-17 07:12 | PC.NURSE ---
Filomena Rice rounded on pt. No complaints or needs voiced. Call light within reach
--- NOTE | 2023-09-17 07:37 | PC.NURSE ---
Dr. Freire s/w Dr. Briones for possible admission
--- NOTE | 2023-09-17 07:42 | PC.NURSE ---
Anselmo Guzmán agrees to admit: Tonja PNA, acute hypoxic resp failure. food checkers and cashiers supervisor notified.
--- NOTE | 2023-09-17 07:47 | PC.NURSE ---
0742 CARE MANAGEMENT NOTIFIED OF ADMISSION BED REQUESTED, ADMISSIONS NOTIFIED PT TO ROOM 211.
--- NOTE | 2023-09-17 08:00 | PC.NURSE ---
rounded on pt, updated about admission and the progress of getting him to a bed, family at bs
--- NOTE | 2023-09-17 08:02 | PC.NURSE ---
Gave report to Su Cole RN on Med Surg
[2023-09-17 09:13] LABS: Troponin I < 0.01 ng/ml (0.00-0.034)
[2023-09-17 09:21] LABS: Adenovirus,PCR Not Detected (NotDetected); Bordetella Pertussis Not Detected (NotDetected); Chlamydophila Pneumoniae, PCR Not Detected (NotDetected); Coronavirus 19, PCR Not Detected (NotDetected); Coronavirus 229E Not Detected (NotDetected); Coronavirus NL63 Not Detected (NotDetected); Coronavirus OC43 Not Detected (NotDetected); Coronovirus HKU1,PCR Not Detected (NotDetected); Human Metapneumovirus Not Detected (NotDetected); Influenza A, PCR Not Detected (NotDetected); Influenza AH1, 2009 Not Detected (NotDetected); Influenza AH1, PCR Not Detected (NotDetected); Influenza AH3,PCR Not Detected (NotDetected); Influenza B, PCR Not Detected (NotDetected); Mycoplasma Pneumoniae, PCR Not Detected (NotDetected); Parainfluenza 1, PCR Not Detected (NotDetected); Parainfluenza 2, PCR Not Detected (NotDetected); Parainfluenza 3, PCR Not Detected (NotDetected); Parainfluenza 4, PCR Not Detected (NotDetected); Respiratory Syncytial Virus Not Detected (NotDetected); Rhinovirus/Enterovirus Not Detected (NotDetected)
[2023-09-17] MEDS: ENOXAPARIN 40MG/0.4ML SYRINGE 40 MG SQ (09:35)
--- NOTE | 2023-09-17 09:43 | HMH.PHAINT1 ---
Pharmacy Intervention Comments: HOME MEDICATION LIST VERIFIED USING LIST FROM OUTPATIENT PHARMACY
--- NOTE | 2023-09-17 09:47 | P.CONS_ITS ---
History of Present Illness History of present illness: Mr. Abrams is a 38-year-old male current smoker presented complaining of worsening respiratory distress and pulmonary was called for further evaluation and management. He admits positive home testing for COVID-19 pneumonia. [facility] Disclaimer: The information contained in this section may have been updated after the patient was seen, as this information can be updated by other users. Medical History (Updated 09/17/23 @ 15:22 by Lety Lay MD) Pneumonia No significant family history Lumbar back pain Sciatica Surgical History No significant past surgical history Family History (Updated 09/17/23 @ 09:46 by Tammy Burch, RN) Other No significant family history Social History (Updated 09/17/23 @ 09:46 by Tammy Burch RN) Smoking Status: Current every day smoker second hand exposure: No alcohol intake: never substance use type: former substance user current occupational status: employed Travel in the last 8 weeks: None household members: spouse and children housing: house marital status: Review of Systems Constitutional Constitutional: Reports chills, Reports fatigue, Denies headache(s), Reports lethargy and Denies weakness Eyes Eyes: Denies eye discharge, Denies dry eyes, Denies irritation and Denies itchy eyes ENT Ears, Nose, Mouth, and Throat: Denies dizziness, Denies headache(s), Denies lip swelling and Denies throat swelling *Cardiovascular Cardiovascular: Reports dyspnea and Reports dyspnea on exertion *Respiratory Respiratory: Reports chest congestion, Reports cough, Reports dyspnea, Reports dyspnea on exertion, Denies excessive phlegm production and Reports wheezing *Gastrointestinal Gastrointestinal: Denies abdominal pain, Denies belching and Denies cramping *Musculoskeletal Musculoskeletal: Denies numbness and Denies tingling *Neurologic Neurologic: Denies dizziness, Denies headache(s), Denies numbness, Denies tingling and Denies weakness Psychiatric Psychiatric: Denies homicidal ideation and Denies suicidal ideation Endocrine Endocrine: Reports fatigue and Denies heat intolerance Hematologic/Lymphatic Hematologic/Lymphatic: Denies easy bleeding and Denies lymphadenopathy Allergic/Immunologic Allergic/Immunologic: Denies itchy eyes, Denies lip swelling, Denies throat swelling and Reports wheezing Pulmonology Exam Inpatient Vital signs and Labs for Last 24 Hours: Temp Pulse Resp BP Pulse Ox O2 Del Method O2 Flow Rate 99.3 F 120 H 20 123/65 93 L Nasal Cannula 4 09/17/23 08:10 09/17/23 08:10 09/17/23 08:10 09/17/23 08:10 09/17/23 08:01 09/17/23 09:00 09/17/23 09:00 Laboratory Results - last 24 hr 09/17/23 04:48: VBG pH 7.42 H, VBG pCO2 40.5, VBG pO2 41.5 H, VBG HCO3 25.6, VBG Total CO2 26.8, VBG O2 Saturation 77.3 H, VBG Base Excess 1.1, VBG Lactic Acid 1.6 09/17/23 04:55: WBC 11.5 H, RBC 4.89, Hgb 14.5, Hct 43.3, MCV 88.4, MCH 29.6, MCHC 33.5, RDW 14.5, Plt Count 240, MPV 7.7, Neut % (Auto) 89.3 H, Lymph % (Auto) 7.4 L, [place] % (Auto) 2.9, Eos % (Auto) 0.3, Baso % (Auto) 0.2, Neut # (Auto) 10.2 H, Lymph # (Auto) 0.8, [place] # (Auto) 0.3, Eos # (Auto) 0.0, Baso # (Auto) 0.0, Total Counted 100, Neutrophils % (Manual) 88 H, Lymphocytes % (Manual) 11, Monocytes % (Manual) 1 L, Platelet Estimate Normal, RBC Morphology Normal, PT 11.0, INR 0.98, D-Dimer 0.73 H, Sodium 136, Potassium 4.3, Chloride 101, Carbon Dioxide 29, Anion Gap 10.3, BUN 12, Creatinine 0.70, Estimated Creat Clear 300, Estimated GFR 128, Est GFR ( Amer) 154, Glucose 138 H, Calcium 8.6, Total Bilirubin 1.3, AST 38, ALT 53, Alkaline Phosphatase 75, Troponin I < 0.01, NT-Pro-B Natriuret Pep 99.8, Total Protein 7.8, Albumin 4.4, Globulin 3.4 H, Albumin/Globulin Ratio 1.3 09/17/23 08:15: Troponin I < 0.01 I & O for Labs for Last 24 Hours: Intake & Output 09/14/23 09/15/23 09/16/23 09/17/23 23:59 23:59 23:59 23:59 Weight 308 lb 3 oz Constitutional: Present moderate distress Head: Present normocephalic and atraumatic ENT: Present normal exam, normal oropharynx and mucous membranes moist Neck: Present normal inspection and full ROM Respiratory: Present respiratory distress, diminished air movement and able to speak in complete sentences; Absent wheezes or crackles Cardiac: Present S1/S2, Tachycardia and radial pulses present GI: Present soft and distention; Absent tenderness or guarding Skin: Present intact; Absent cyanosis or jaundice Neuro: Present alert, awake and oriented x 3 Extremities: Present normal inspection; Absent clubbing or cyanosis Psychiatric: Present normal affect and cooperative Meds Home Medications and Allergies Home Medications ?Medication ?Instructions ?Recorded ?Confirmed ?Type buprenorphine 2 mg-naloxone 0.5 mg 1 film sublingual DAILY 04/23/23 09/17/23 History sublingual film albuterol sulfate 90 mcg/actuation 2 puff inhalation Q6H PRN 09/01/23 09/17/23 Rx aerosol inhaler shortness of breath or wheezing #6.7 grams sulfamethoxazole 800 1 tab PO BID #20 tabs 09/07/23 09/17/23 Rx mg-trimethoprim 160 mg tablet [id number]-[id number] 10 ml PO Q4-6H PRN cold symptoms 09/15/23 09/17/23 Rx 2 mg-30 mg-10 mg/5 mL oral syrup #473 mL (Bromfed DM) prednisone 50 mg tablet 50 mg PO DAILY #7 tabs 09/16/23 09/17/23 Rx buprenorphine 8 mg-naloxone 2 mg 1 film sublingual DAILY 09/17/23 09/17/23 History sublingual film New Prescriptions to Start Prescriptions: Allergies Allergy/AdvReac Type Severity Reaction Status Date / Time No Known Allergies Allergy Verified 09/01/23 14:41 Results Laboratory Findings 09/17/23 04:55 09/17/23 04:55 PT/INR, D-dimer PT 11.0 seconds (10.1-12.5) 09/17/23 04:55 INR 0.98 (0.9-1.1) 09/17/23 04:55 D-Dimer 0.73 ug/mL (0.0-0.5) H 09/17/23 04:55 Abnormal lab findings: Abnormal Labs 09/17/23 09/17/23 04:48 04:55 WBC 11.5 H Neut % (Auto) 89.3 H Lymph % (Auto) 7.4 L Neut # (Auto) 10.2 H Neutrophils % (Manual) 88 H Monocytes % (Manual) 1 L D-Dimer 0.73 H VBG pH 7.42 H VBG pO2 41.5 H VBG O2 Saturation 77.3 H Glucose 138 H Globulin 3.4 H Assessment and Plan *Assessment and plan (1) Acute hypoxemic respiratory failure: Status: Acute Category: Medical Code(s): J96.01 - Acute respiratory failure with hypoxia (2) Pneumonia: Status: Acute Category: Medical Code(s): J18.9 - Pneumonia, unspecified organism Plan Current smoker, around 1-1 and half pack a day. Admits positive home testing for COVID-19 pneumonia around last Thursday followed by negative test Thursday. Patient admits continued worsening respiratory symptoms with subjective fevers cough wheezing and shortness of breath. Mild leukocytosis neutrophilic predominant upon admission. CTA upon admission bilateral multifocal pneumonia predominantly in the left lung fox groundglass in left upper lobe and patchy opacities in the left lingula and lower lobe. Contrast timing very sub optimal, No obvious evidence of pulmonary embolism. Plan: Initiate Advair 500 twice daily Continue ceftriaxone and doxycycline pending sputum culture results Follow with comprehensive respiratory viral PCR panel, will initiate COVID- specific treatment based on PCR panel Repeat CTA PE protocol, patient elevated D-dimer no significant pulmonary parenchymal findings in the setting of consistent new onset hypoxia and tachycardia it is appropriate to repeat a CT PE protocol to rule out any pulmonary embolism contributing to his current hypoxic respiratory failure along with his COVID-19 pneumonia.
[2023-09-17 12:21] LABS: Troponin I < 0.01 ng/ml (0.00-0.034)
[2023-09-17] MEDS: BUPRENORPHINE/NALOXONE 8MG/2MG ODT 1.25 EACH SL (12:41)
--- NOTE | 2023-09-17 13:41 | CT_ITS ---
FINAL REPORT TECHNIQUE: Postcontrast axial images of the chest were performed in a CTA protocol. This study was performed with techniques to keep radiation doses as low as reasonably achievable, (ALARA). Individualized dose reduction technique using automated exposure control or adjustment of mA and/or kV according to the patient's size were employed. CLINICAL HISTORY: Hypoxia, TACHY, COVID-positive COMPARISON: Exam performed earlier today. FINDINGS: The heart is normal in size. There is mediastinal and hilar adenopathy, favor reactive over neoplastic. No pleural or pericardial effusion is identified. The thoracic aorta is normal in caliber with no focal aneurysm or dissection identified. There is no filling defect to suggest pulmonary embolism. There are patchy bilateral opacities consistent with bilateral pneumonia, left greater than right. The images of the upper abdomen are unremarkable. IMPRESSION: No evidence for PE on this exam. Patchy bilateral opacities consistent with bilateral pneumonia with likely reactive adenopathy. Reviewed, Interpreted and Dictated by Tomi Kaba III, MD Transcribed by Leann Santiago Authenticated and [facility]
[2023-09-17] MEDS: 0.9 % SODIUM CHLORIDE 50 ML VIAL IV (14:18)
[2023-09-17] MEDS: DEXAMETHASONE 4MG/ML 1ML VIAL 6 MG IV (16:29)
--- NOTE | 2023-09-17 18:17 | EXP.HP ---
History of Present Illness *Admission Date: 09/17/23 *Reason for visit:: SOB *History of present illness: Patient is a 38-year-old male with past medical history of tobacco use, chronic back pain who presents to the hospital due to shortness of breath hypoxia, patient mentions he has been feeling sick for the last 4 days, he has not been improving he started having chills and fevers so decided to come to the hospital. According to patient he smokes half pack per day, he has never been diagnosed with COPD. Patient otherwise denied nausea vomiting diarrhea constipation dysuria. Patient tested positive for COVID-pneumonia at home test. [facility] Disclaimer: The information contained in this section may have been updated after the patient was seen, as this information can be updated by other users. Medical History (Updated 09/17/23 @ 15:22 by Lety Lay MD) Pneumonia No significant family history Lumbar back pain Sciatica Surgical History No significant past surgical history Family History (Updated 09/17/23 @ 09:46 by Tammy Burch RN) Other No significant family history Social History (Updated 09/17/23 @ 09:46 by Tammy Burch RN) Smoking Status: Current every day smoker second hand exposure: No alcohol intake: never substance use type: former substance user current occupational status: employed Travel in the last 8 weeks: None household members: spouse and children housing: house marital status: Review of Systems Review of Systems Review of systems:: pertinent systems reviewed and negative unless documented below Constitutional Constitutional: Denies headache(s) and Denies weakness ENT Ears, Nose, Mouth, and Throat: Denies dizziness and Denies headache(s) *Musculoskeletal Musculoskeletal: Denies numbness and Denies tingling *Neurologic Neurologic: Denies dizziness, Denies headache(s), Denies numbness, Denies tingling and Denies weakness Meds Home Medications and Allergies Home Medications ?Medication ?Instructions ?Recorded ?Confirmed ?Type buprenorphine 2 mg-naloxone 0.5 mg 1 film sublingual DAILY 04/23/23 09/17/23 History sublingual film albuterol sulfate 90 mcg/actuation 2 puff inhalation Q6H PRN 09/01/23 09/17/23 Rx aerosol inhaler shortness of breath or wheezing #6.7 grams sulfamethoxazole 800 1 tab PO BID #20 tabs 09/07/23 09/17/23 Rx mg-trimethoprim 160 mg tablet [id number]-ryzwdbflstlnrrt-JE 10 ml PO Q4-6H PRN cold symptoms 09/15/23 09/17/23 Rx 2 mg-30 mg-10 mg/5 mL oral syrup #473 mL (Bromfed DM) prednisone 50 mg tablet 50 mg PO DAILY #7 tabs 09/16/23 09/17/23 Rx buprenorphine 8 mg-naloxone 2 mg 1 film sublingual DAILY 09/17/23 09/17/23 History sublingual film New Prescriptions to Start Prescriptions: Allergies Allergy/AdvReac Type Severity Reaction Status Date / Time No Known Allergies Allergy Verified 09/01/23 14:41 Exam Data for Last 24 hours Vital signs and Labs for Last 24 Hours: Temp Pulse Resp BP Pulse Ox O2 Del Method O2 Flow Rate 98.1 F 87 18 139/71 95 Nasal Cannula 3 09/17/23 16:00 09/17/23 16:00 09/17/23 16:00 09/17/23 16:00 09/17/23 16:00 09/17/23 16:00 09/17/23 16:00 Laboratory Results - last 24 hr 09/17/23 04:48: VBG pH 7.42 H, VBG pCO2 40.5, VBG pO2 41.5 H, VBG HCO3 25.6, VBG Total CO2 26.8, VBG O2 Saturation 77.3 H, VBG Base Excess 1.1, VBG Lactic Acid 1.6 09/17/23 04:55: WBC 11.5 H, RBC 4.89, Hgb 14.5, Hct 43.3, MCV 88.4, MCH 29.6, MCHC 33.5, RDW 14.5, Plt Count 240, MPV 7.7, Neut % (Auto) 89.3 H, Lymph % (Auto) 7.4 L, [place] % (Auto) 2.9, Eos % (Auto) 0.3, Baso % (Auto) 0.2, Neut # (Auto) 10.2 H, Lymph # (Auto) 0.8, [place] # (Auto) 0.3, Eos # (Auto) 0.0, Baso # (Auto) 0.0, Total Counted 100, Neutrophils % (Manual) 88 H, Lymphocytes % (Manual) 11, Monocytes % (Manual) 1 L, Platelet Estimate Normal, RBC Morphology Normal, PT 11.0, INR 0.98, D-Dimer 0.73 H, Sodium 136, Potassium 4.3, Chloride 101, Carbon Dioxide 29, Anion Gap 10.3, BUN 12, Creatinine 0.70, Estimated Creat Clear 300, Estimated GFR 128, Est GFR ( Amer) 154, Glucose 138 H, Calcium 8.6, Total Bilirubin 1.3, AST 38, ALT 53, Alkaline Phosphatase 75, Troponin I < 0.01, NT-Pro-B Natriuret Pep 99.8, Total Protein 7.8, Albumin 4.4, Globulin 3.4 H, Albumin/Globulin Ratio 1.3 09/17/23 08:15: Troponin I < 0.01 09/17/23 08:42: Chlamy pneumoniae PCR Not detected, Adenovirus (PCR) Not detected, B. pertussis DNA (PCR) Not detected, Coronavirus OC43 (PCR) Not detected, Coronavirus HKU1 (PCR) Not detected, Coronavirus 229E (PCR) Not detected, SARS-CoV-2 (PCR) Not detected, Coronavirus NL63 (PCR) Not detected, Human Metapneumovir PCR Not detected, Influenza A (H1) PCR Not detected, Influ A (H1N1/09) PCR Not detected, Influenza A (H3) PCR Not detected, Influenza Type A (PCR) Not detected, Influenza Type B (PCR) Not detected, M. pneumoniae (PCR) Not detected, Parainfluenza 1 (PCR) Not detected, Parainfluenza 2 (PCR) Not detected, Parainfluenza 3 (PCR) Not detected, Parainfluenza 4 (PCR) Not detected, RSV (PCR) Not detected, Entero/Rhino (PCR) Not detected 09/17/23 11:26: Troponin I < 0.01 I & O for Last 24 hours: Intake & Output 09/14/23 09/15/23 09/16/23 09/17/23 23:59 23:59 23:59 23:59 Intake Total 990 / 990 Balance 990 / 990 Weight 139.791 kg Constitutional Constitutional: no acute distress *Routine HEENT Exam Head: Present normocephalic Eye: Present EOMI and PERRL ENT: Present mucous membranes moist *Routine Neck Exam Neck: Present supple; Absent lymphadenopathy *Routine Respiratory Exam Respiratory: Present CTA bilaterally *Routine Cardiovascular Exam Cardiovascular: Present RRR *Routine Abdominal Exam Abdominal: Present soft and normoactive bowel sounds; Absent tenderness *Routine Rectal Exam Rectal:: deferred *Routine Genitalia Exam Genitalia:: deferred *Routine Extremities Exam Extremities: Absent cyanosis, clubbing or edema *Routine Skin Exam Skin: Present warm; Absent rash *Routine Neurological Exam Neurological: Present alert and oriented X3 Assessment and Plan *Assessment and plan (1) Pneumonia: Status: Acute Category: Medical Code(s): J18.9 - Pneumonia, unspecified organism (2) Acute hypoxemic respiratory failure: Status: Acute Category: Medical Code(s): J96.01 - Acute respiratory failure with hypoxia (3) Pneumonia due to COVID-19 virus: Status: Acute Category: Medical Code(s): U07.1 - COVID-19; J12.82 - Pneumonia due to coronavirus disease 2019 (4) Lumbar back pain: Status: Acute Category: Medical Code(s): M54.50 - Low back pain, unspecified Plan Patient is a 38-year-old male with past medical history of tobacco use, chronic back pain who presents to the hospital due to shortness of breath hypoxia, patient mentions he has been feeling sick for the last 4 days, he has not been improving he started having chills and fevers so decided to come to the hospital. According to patient he smokes half pack per day, he has never been diagnosed with COPD. Patient otherwise denied nausea vomiting diarrhea constipation dysuria. Patient tested positive for COVID-pneumonia at home test. Assessment and plan COVID-19 infection Acute hypoxic respiratory failure secondary to 90% on room air Suspect superimposed multifocal bacterial pneumonia Will start Rocephin, doxycycline Check a sputum cultures Consult pulmonary-appreciate recommendations CTA chest performed did not show groundglass in left lung, patchy opacities in left lung lingula, no evidence of pulmonary embolism Pulmonary recommend to repeat CTA chest rule out PE due to suboptimal CTA chest contrast administration COVID test negative, flu negative Leukocytosis likely secondary to above -Monitor DVT prophylaxis-Lovenox
[2023-09-17] MEDS: FLUTICASONE/SALMETEROL 500/50MCG DISKUS 1 PUFF IH (18:34)
--- NOTE | 2023-09-17 18:35 | PC.NURSE ---
pt has been lying in the bed resting for majority of the shift. when he arrived to the floor he was on 4 LNC and was 95%, now he is on 2 LNC and is 91%-92% tolerating well. pt has not complained of pain. he received dexamethasone IV per MAR and stated he has been coughing up mucous. no further requests at this time, call light within reach.
--- NOTE | 2023-09-17 19:00 | PC.NURSE ---
patient was weaned to RA with sats >90% while sitting and ambulating.
[2023-09-18] VITALS: BP 133/70; PULSE 80; PULSE 95; RESP 16; TEMP 36.7; O2SAT 90
[2023-09-18 04:00] VITALS: BP 147/77; PULSE 82; RESP 16; TEMP 36.7; O2SAT 93; BMI 38.2
[2023-09-18 04:17] VITALS: PULSE 75
--- NOTE | 2023-09-18 05:30 | PC.NURSE ---
Patient is alert and oriented x4. Patient ambulated the hallway earlier this shift with his by his side; patient tolerated ambulation well. Patient was on room air during the beginning of the shift while he was awake. During the night, the patient's oxygen saturations started to slightly drop below 90 (to 88 and 89) during sleep and was placed back onto oxygen 2L nasal cannula; patient's oxygen saturations have remained within 90 and 93. Upon auscultation of lungs, rhonchi was noted during inspiration/exhalation. Patient has not reported any shortness of breath during this shift. Patient is normal sinus rhythm on telemetry. Bowel sounds were active in all quadrants. Patient is currently lying in bed with at bedside. Patient does not have any further complaints at this time. Call light within reach.
[2023-09-18 06:10] LABS: Basophils % 0.4 % (0.1-2.0); Eosinophils % 0.2 % (0.1-12.0); Hematocrit 41.6 % (42.0-52.0); Hemoglobin 13.7 g/dL (14.1-18.0); Lymphocytes # 1.4 K/mm3 (0.7-4.5); Lymphocytes % 16.8 % (10-50); Mean Corpuscular HGB Conc 33.1 g/dL (31.8-35.4); Mean Corpuscular Hemoglobin 29.6 pg (27.0-31.2); Mean Corpuscular Volume 89.6 fl (80-94); Mean Platelet Volume 7.5 fl (7.4-10.4); Monocytes # 0.5 K/mm3 (0.1-1.0); Monocytes % 6.3 % (1.7-9.3); Neutrophils # 6.2 K/mm3 (1.8-7.8); Neutrophils % 76.2 % (37.0-80.0); Platelet Count 250 K/mm3 (142-424); Red Blood Count 4.64 M/mm3 (4.60-6.20); Red Cell Distribution Width 14.6 % (11.5-17.5); White Blood Count 8.2 K/mm3 (4.8-10.8)
[2023-09-18 06:18] LABS: Chloride 105 mmol/L (98-107)
[2023-09-18 06:19] LABS: Potassium 4.1 mmoL/L (3.5-5.1); Sodium 137 mmol/L (136-145)
[2023-09-18 06:22] LABS: Anion Gap 7.1 mEq/L (5-15); Blood Urea Nitrogen 13 mg/dl (9-20); Calcium 8.5 mg/dl (8.4-10.2); Carbon Dioxide 29 mmol/L (22.0-30.0); Creatinine Clearance Estimated 288 mL/min (50-200); Estimated Glomerular Filt Rate 128 ml/min (>60); GFR (African American) 154 ML/MIN (>60); Glucose 109 mg/dl (74-100)
[2023-09-18] MEDS: FLUTICASONE/SALMETEROL 500/50MCG DISKUS 1 PUFF IH (06:37)
--- NOTE | 2023-09-18 06:42 | PC.NURSE ---
Respiratory removed oxygen from patient after breathing treatment. Patient is awake and currently tolerating room air well with an oxygen saturation of 92.
[2023-09-18 08:00] VITALS: BP 132/92; PULSE 89; PULSE 95; RESP 22; TEMP 36.9; O2SAT 93
[2023-09-18] MEDS: BUPRENORPHINE/NALOXONE 8MG/2MG ODT 1.25 EACH SL (08:28)
[2023-09-18] MEDS: DEXAMETHASONE 4MG/ML 1ML VIAL 6 MG IV (08:28)
[2023-09-18 09:33] VITALS: O2SAT 85
--- NOTE | 2023-09-18 09:55 | P.PN_ITS ---
Subjective *Date: 09/18/23 *Time: 11:09 Interval history: Patient denies any new respiratory complaints. Admits continued improvement in his respiratory symptoms. Pulmonology Exam Inpatient Vital signs and Labs for Last 24 Hours: Temp Pulse Resp BP Pulse Ox O2 Del Method O2 Flow Rate 98.4 F 89 22 132/92 H 85 L Room Air 2 09/18/23 08:00 09/18/23 08:00 09/18/23 08:00 09/18/23 08:00 09/18/23 09:33 09/18/23 09:33 09/18/23 08:00 Laboratory Results - last 24 hr 09/17/23 08:42: Chlamy pneumoniae PCR Not detected, Adenovirus (PCR) Not d etected, B. pertussis DNA (PCR) Not detected, Coronavirus OC43 (PCR) Not detected, Coronavirus HKU1 (PCR) Not detected, Coronavirus 229E (PCR) Not detected, SARS-CoV-2 (PCR) Not detected, Coronavirus NL63 (PCR) Not detected, Human Metapneumovir PCR Not detected, Influenza A (H1) PCR Not detected, Influ A (H1N1/09) PCR Not detected, Influenza A (H3) PCR Not detected, Influenza Type A (PCR) Not detected, Influenza Type B (PCR) Not detected, M. pneumoniae (PCR) Not detected, Parainfluenza 1 (PCR) Not detected, Parainfluenza 2 (PCR) Not detected, Parainfluenza 3 (PCR) Not detected, Parainfluenza 4 (PCR) Not detected, RSV (PCR) Not detected, Entero/Rhino (PCR) Not detected 09/17/23 11:26: Troponin I < 0.01 09/18/23 05:50: WBC 8.2 D, RBC 4.64, Hgb 13.7 L, Hct 41.6 L, MCV 89.6, MCH 29.6, MCHC 33.1, RDW 14.6, Plt Count 250, MPV 7.5, Neut % (Auto) 76.2, Lymph % (Auto) 16.8, [place]unders % (Auto) 6.3, Eos % (Auto) 0.2, Baso % (Auto) 0.4, Neut # (Auto) 6.2, Lymph # (Auto) 1.4, [place]unders # (Auto) 0.5, Eos # (Auto) 0.0, Baso # (Auto) 0.0, Sodium 137, Potassium 4.1, Chloride 105, Carbon Dioxide 29, Anion Gap 7.1, BUN 13, Creatinine 0.70, Estimated Creat Clear 288, Estimated GFR 128, Est GFR ( Amer) 154, Glucose 109 H, Calcium 8.5 Temp Pulse Resp BP Pulse Ox O2 Del Method O2 Flow Rate 99.3 F 120 H 20 123/65 93 L Nasal Cannula 4 09/17/23 08:10 09/17/23 08:10 09/17/23 08:10 09/17/23 08:10 09/17/23 08:01 09/17/23 09:00 09/17/23 09:00 Laboratory Results - last 24 hr 09/17/23 04:48: VBG pH 7.42 H, VBG pCO2 40.5, VBG pO2 41.5 H, VBG HCO3 25.6, VBG Total CO2 26.8, VBG O2 Saturation 77.3 H, VBG Base Excess 1.1, VBG Lactic Acid 1.6 09/17/23 04:55: WBC 11.5 H, RBC 4.89, Hgb 14.5, Hct 43.3, MCV 88.4, MCH 29.6, MCHC 33.5, RDW 14.5, Plt Count 240, MPV 7.7, Neut % (Auto) 89.3 H, Lymph % (Auto) 7.4 L, Saunders % (Auto) 2.9, Eos % (Auto) 0.3, Baso % (Auto) 0.2, Neut # (Auto) 10.2 H, Lymph # (Auto) 0.8, Saunders # (Auto) 0.3, Eos # (Auto) 0.0, Baso # (Auto) 0.0, Total Counted 100, Neutrophils % (Manual) 88 H, Lymphocytes % (Manual) 11, Monocytes % (Manual) 1 L, Platelet Estimate Normal, RBC Morphology Normal, PT 11.0, INR 0.98, D-Dimer 0.73 H, Sodium 136, Potassium 4.3, Chloride 101, Carbon Dioxide 29, Anion Gap 10.3, BUN 12, Creatinine 0.70, Estimated Creat Clear 300, Estimated GFR 128, Est GFR ( Amer) 154, Glucose 138 H, Calcium 8.6, Total Bilirubin 1.3, AST 38, ALT 53, Alkaline Phosphatase 75, Troponin I < 0.01, NT-Pro-B Natriuret Pep 99.8, Total Protein 7.8, Albumin 4.4, Globulin 3.4 H, Albumin/Globulin Ratio 1.3 09/17/23 08:15: Troponin I < 0.01 I & O for Labs for Last 24 Hours: Intake & Output 09/15/23 09/16/23 09/17/23 09/18/23 23:59 23:59 23:59 23:59 Intake Total 990 / 1110 540 / 540 Output Total 0 / 0 Balance 990 / 1110 540 / 540 Weight 308 lb 3 oz 308 lb 2.982 oz Intake & Output 09/14/23 09/15/23 09/16/23 09/17/23 23:59 23:59 23:59 23:59 Weight 308 lb 3 oz Constitutional: Present moderate distress Head: Present normocephalic and atraumatic ENT: Present normal exam, normal oropharynx and mucous membranes moist Neck: Present normal inspection and full ROM Respiratory: Present respiratory distress, diminished air movement and able to speak in complete sentences; Absent wheezes or crackles Cardiac: Present S1/S2, Tachycardia and radial pulses present GI: Present soft and distention; Absent tenderness or guarding Skin: Present intact; Absent cyanosis or jaundice Neuro: Present alert, awake and oriented x 3 Extremities: Present normal inspection; Absent clubbing or cyanosis Psychiatric: Present normal affect and cooperative Assessment and Plan *Assessment and plan (1) Acute hypoxemic respiratory failure: Status: Acute Category: Medical Code(s): J96.01 - Acute respiratory failure with hypoxia (2) Pneumonia: Status: Acute Category: Medical Code(s): J18.9 - Pneumonia, unspecified organism (3) Bronchiectasis: Status: Acute Category: Medical Code(s): J47.9 - Bronchiectasis, uncomplicated (4) Hilar lymphadenopathy: Status: Acute Category: Medical Code(s): R59.0 - Localized enlarged lymph nodes (5) Mediastinal lymphadenopathy: Status: Acute Category: Medical Code(s): R59.0 - Localized enlarged lymph nodes Plan Current smoker, around 1-1 and half pack a day. Admits positive home testing for COVID-19 pneumonia around last Thursday followed by negative test Thursday. Patient admits continued worsening respiratory symptoms with subjective fevers cough wheezing and shortness of breath. Mild leukocytosis neutrophilic predominant upon admission. CTA upon admission bilateral multifocal pneumonia predominantly in the left lung fox groundglass in left upper lobe and patchy opacities in the left lingula and lower lobe. Contrast timing very sub optimal, No obvious evidence of p ulmonary embolism. Interval update: Repeat CTA, suboptimal contrast, discussed with radiology, no obvious evidence of segmental pulmonary embolism bilaterally. Comprehensive respiratory viral PCR negative. CT chest lung with the previously noted left lung findings also noted to have right lower lobe bronchiectasis micronodular tree-in-bud opacities concerning for atypical infection/may well be a superimposed bacterial infection for which she has been treated Recommend follow-up with AFB stain cultures to rule out any atypical mycobacterial infections. Afebrile. Hemodynamically stable. Neutrophilic leukocytosis resolved Plan: -Continue oxygen supplementation 1-2 at rest on 3-4 with exertion. Room air saturations at rest today were recorded at 86% with 6-minute walk testing showed significant desaturations to 84%. Continue Advair 500 twice daily Continue ceftriaxone and doxycycline pending sputum culture results, can be weaned to cefdinir prior to discharge Continue prednisone to complete a total of 5-day course Follow with sputum AFB stain sensitivities. # Along with the noted prominent left upper lobe groundglass and left lingular airspace disease patient also noted to have right lower lobe micronodular pattern and bronchiectasis concerning for any other atypical infections. He does also noted to have lymphadenopathy which will which can well be reactive. Will obtain sputum sample for AFB stain cultures prior to discharge. Will also follow as an outpatient basis to document resolution of the noted findings and lymphadenopathy. # Thank you for involving pulmonary in this patient with reevaluation in pulmonary clinic in 1 to 2 weeks post discharge.
[2023-09-18 12:00] VITALS: BP 118/66; PULSE 87; PULSE 90; RESP 20; TEMP 37.1; O2SAT 92
--- NOTE | 2023-09-18 13:56 | PC.NURSE ---
Pt given specimen cup and instructed to cough any sputum into it if possible
--- NOTE | 2023-09-18 14:14 | P.DS_ITS ---
General Admission date:: 09/17/23 Discharge date: 09/18/23 HPI HPI HPI: Patient is a 38-year-old male with past medical history of tobacco use, chronic back pain who presents to the hospital due to shortness of breath hypoxia, patient mentions he has been feeling sick for the last 4 days, he has not been improving he started having chills and fevers so decided to come to the hospital. According to patient he smokes half pack per day, he has never been diagnosed with COPD. Patient otherwise denied nausea vomiting diarrhea constipation dysuria. Patient tested positive for COVID-pneumonia at home test. Hospital Course Hospital Course Hospital Course: Patient presented for SOB and COVID 19 concerns. Patient was diagnosed with PNA - started on IV abx and transitioned to oral cefdinir at discharge, patient qualified for home oxygen as well. Patient found to be 85% of room air. patient was cleared for discharge by pulmonary and recommended 5 day course of prednisone and outpatient follow up. On the date of discharge, the patient reported feeling stable. The patient was found not to be in any acute distress, and no new abnormalities on physical examination. Further, the patient expressed appropriate understanding of, and agreement with, the discharge recommendations, medications, and plan. Time spent 37 mins Exam Data for Last 24 hours Vital signs and Labs for Last 24 Hours: Temp Pulse Resp BP Pulse Ox O2 Del Method O2 Flow Rate 98.7 F 87 20 118/66 92 L Nasal Cannula 2 09/18/23 12:00 09/18/23 12:00 09/18/23 12:00 09/18/23 12:00 09/18/23 12:00 09/18/23 13:00 09/18/23 13:00 Laboratory Results - last 24 hr 09/17/23 08:42: Chlamy pneumoniae PCR Not detected, Adenovirus (PCR) Not detected, B. pertussis DNA (PCR) Not detected, Coronavirus OC43 (PCR) Not detected, Coronavirus HKU1 (PCR) Not detected, Coronavirus 229E (PCR) Not detected, SARS-CoV-2 (PCR) Not detected, Coronavirus NL63 (PCR) Not detected, Human Metapneumovir PCR Not detected, Influenza A (H1) PCR Not detected, Influ A (H1N1/09) PCR Not detected, Influenza A (H3) PCR Not detected, Influenza Type A (PCR) Not detected, Influenza Type B (PCR) Not detected, M. pneumoniae (PCR) Not detected, Parainfluenza 1 (PCR) Not detected, Parainfluenza 2 (PCR) Not detected, Parainfluenza 3 (PCR) Not detected, Parainfluenza 4 (PCR) Not detected, RSV (PCR) Not detected, Entero/Rhino (PCR) Not detected 09/18/23 05:50: WBC 8.2 D, RBC 4.64, Hgb 13.7 L, Hct 41.6 L, MCV 89.6, MCH 29.6, MCHC 33.1, RDW 14.6, Plt Count 250, MPV 7.5, Neut % (Auto) 76.2, Lymph % (Auto) 16.8, [place] % (Auto) 6.3, Eos % (Auto) 0.2, Baso % (Auto) 0.4, Neut # (Auto) 6.2, Lymph # (Auto) 1.4, [place] # (Auto) 0.5, Eos # (Auto) 0.0, Baso # (Auto) 0.0, Sodium 137, Potassium 4.1, Chloride 105, Carbon Dioxide 29, Anion Gap 7.1, BUN 13, Creatinine 0.70, Estimated Creat Clear 288, Estimated GFR 128, Est GFR ( Amer) 154, Glucose 109 H, Calcium 8.5 I & O for Last 24 hours: Intake & Output 09/15/23 09/16/23 09/17/23 09/18/23 23:59 23:59 23:59 23:59 Intake Total 990 / 1110 660 / 660 Output Total 0 / 0 Balance 990 / 1110 660 / 660 Weight 139.791 kg 139.791 kg Constitutional Constitutional: no acute distress *Routine HEENT Exam Head: Present normocephalic Eye: Present EOMI and PERRL ENT: Present mucous membranes moist *Routine Neck Exam Neck: Present supple; Absent lymphadenopathy *Routine Respiratory Exam Respiratory: Present CTA bilaterally *Routine Cardiovascular Exam Cardiovascular: Present RRR *Routine Abdominal Exam Abdominal: Present soft and normoactive bowel sounds; Absent tenderness *Routine Extremities Exam Extremities: Absent cyanosis, clubbing or edema *Routine Skin Exam Skin: Present warm; Absent rash *Routine Neurological Exam Neurological: Present alert and oriented X3 Results Data Completed and Pending Labs on day of discharge: Labs from last 24 hours 09/18/23 09/17/23 05:50 08:42 WBC 8.2 D RBC 4.64 Hgb 13.7 L Hct 41.6 L MCV 89.6 MCH 29.6 MCHC 33.1 RDW 14.6 Plt Count 250 MPV 7.5 Neut % (Auto) 76.2 Lymph % (Auto) 16.8 [place] % (Auto) 6.3 Eos % (Auto) 0.2 Baso % (Auto) 0.4 Neut # (Auto) 6.2 Lymph # (Auto) 1.4 [place] # (Auto) 0.5 Eos # (Auto) 0.0 Baso # (Auto) 0.0 Sodium 137 Potassium 4.1 Chloride 105 Carbon Dioxide 29 Anion Gap 7.1 BUN 13 Creatinine 0.70 Estimated Creat Clear 288 Estimated GFR 128 Est GFR ( Amer) 154 Glucose 109 H Calcium 8.5 Chlamy pneumoniae PCR Not detected Adenovirus (PCR) Not detected B. pertussis DNA (PCR) Not detected Coronavirus OC43 (PCR) Not detected Coronavirus HKU1 (PCR) Not detected Coronavirus 229E (PCR) Not detected SARS-CoV-2 (PCR) Not detected Coronavirus NL63 (PCR) Not detected Human Metapneumovir PCR Not detected Influenza A (H1) PCR Not detected Influ A (H1N1/09) PCR Not detected Influenza A (H3) PCR Not detected Influenza Type A (PCR) Not detected Influenza Type B (PCR) Not detected M. pneumoniae (PCR) Not detected Parainfluenza 1 (PCR) Not detected Parainfluenza 2 (PCR) Not detected Parainfluenza 3 (PCR) Not detected Parainfluenza 4 (PCR) Not detected RSV (PCR) Not detected Entero/Rhino (PCR) Not detected DS: Diagnosis Discharge Diagnosis (1) Acute hypoxemic respiratory failure: Status: Acute Code(s): J96.01 - Acute respiratory failure with hypoxia (2) Pneumonia: Status: Acute Code(s): J18.9 - Pneumonia, unspecified organism (3) Bronchiectasis: Status: Acute Code(s): J47.9 - Bronchiectasis, uncomplicated (4) Hilar lymphadenopathy: Status: Acute Code(s): R59.0 - Localized enlarged lymph nodes (5) Mediastinal lymphadenopathy: Status: Acute Code(s): R59.0 - Localized enlarged lymph nodes Meds Home Medications and Allergies Home Medications ?Medication ?Instructions ?Recorded ?Confirmed ?Type buprenorphine 2 mg-naloxone 0.5 mg 1 film sublingual DAILY 04/23/23 09/17/23 History sublingual film albuterol sulfate 90 mcg/actuation 2 puff inhalation Q6H PRN 09/01/23 09/17/23 Rx aerosol inhaler shortness of breath or wheezing #6.7 grams sulfamethoxazole 800 1 tab PO BID #20 tabs 09/07/23 09/17/23 Rx mg-trimethoprim 160 mg tablet [id number] 10 ml PO Q4-6H PRN cold symptoms 09/15/23 09/17/23 Rx 2 mg-30 mg-10 mg/5 mL oral syrup #473 mL (Bromfed DM) prednisone 50 mg tablet 50 mg PO DAILY #7 tabs 09/16/23 09/17/23 Rx buprenorphine 8 mg-naloxone 2 mg 1 film sublingual DAILY 09/17/23 09/17/23 History sublingual film cefdinir 300 mg capsule 300 mg PO Q12H 5 days #10 caps 09/18/23 Rx prednisone 50 mg tablet 50 mg PO DAILY 5 days #5 tabs 09/18/23 Rx New Prescriptions to Start Prescriptions: cefJane Lerner prednisone Jane Briones Allergies Allergy/AdvReac Type Severity Reaction Status Date / Time No Known Allergies Allergy Verified 09/01/23 14:41 Discharge Plan Disposition Patient Disposition: Home, Self-Care Condition: Good Discharge Order Discharge Orders: Discharge Order (Routine); Ordered 09/18/23 Ordered By: Jane Briones Follow up Plan Follow up with: Dwaine Triplett MD [Staff Physician] - 09/28/23 1:30 pm Lety Lay MD [Physician] - 09/30/23 11:00 am Prescriptions/Medication Reconciliation: New prednisone 50 mg tablet 50 mg PO DAILY 5 Days Qty: 5 0RF cefdinir 300 mg capsule 300 mg PO Q12H 5 Days Qty: 10 0RF Continued albuterol sulfate 90 mcg/actuation HFA aerosol inhaler 2 puff inhalation Q6H PRN (Reason: shortness of breath or wheezing) Qty: 6.7 2RF buprenorphine-naloxone 2-0.5 mg film 1 film sublingual DAILY Patient Comments: PLACE 1 FILM UNDER THE TONGUE AND ALLOW TO DISSOLVE 1 TIME EACH DAY Rx Instructions: VERIFIED WITH PHARMACY sulfamethoxazole-trimethoprim 800-160 mg tablet 1 tab PO BID Qty: 20 0RF Rx Instructions: LAST DOSE 09/18/23 [id number] [Bromfed DM] 2-30-10 mg/5 mL syrup 10 ml PO Q4-6H PRN (Reason: cold symptoms) Qty: 473 1RF prednisone 50 mg tablet 50 mg PO DAILY Qty: 7 0RF Rx Instructions: START 09/16/23 X 7 DAYS buprenorphine-naloxone 8-2 mg film 1 film sublingual DAILY Other Ambulatory Orders: Home Medical Equipment (Routine) Location: None Selected Ordered By: Jane Briones Problem Reconciliation Problems Reviewed?: Yes Patient Discharge Instructions ACTIVITY: Ambulate as tolerated DIET: continue same diet Patient Instructions: DI for Pneumonia -- Adult, DI for COVID-19 (Suspected or Confirmed ) Print Language: Slovak Providers Primary Care Provider: Provider,Referral Admit Provider: Jane Briones Attending Provider: Jane Briones
--- NOTE | 2023-09-18 14:51 | PC.NURSE ---
Pt left floor with significant other. 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 Did not want to wait.
--- NOTE | 2023-09-20 08:16 | PC.NURSE ---
Patient and patient's together called warehouse order puller and stated that Cefdinir that pt was prescribed at discharge has made pt break out in hives and has requested a different abx. I spoke with hospitalist who stated he would call in a different abx and also send it to [facility] instead of [facility] due to being open today. Patient also advised to come to ED if other symptoms present, or if pt decides necessary for current symptoms.
--- NOTE | 2023-09-21 14:53 | CARE MANAGER ---
Contacted patient related to hospital discharge. He states he is doing better, but still using Oxygen. He denies questions or concerns. He has new medications and is aware of follow up appointments. MANJU Del Toro
== END 2023-09-18 14:53 | disposition home or self-care (01) | DRG 193 ==
LOC: ER 07:41 → 2ND 07:47
PROVIDERS: Emergency Medicine; Admitting Provider Internal Medicine; Emergency Provider Emergency Medicine; Visit Provider Internal Medicine
DX: J96.01 Acute respiratory failure with hypoxia; J18.9 Pneumonia, unspecified organism; F17.210 Nicotine dependence, cigarettes, uncomplicated; J47.9 Bronchiectasis, uncomplicated
CPT/HCPCS: 36415; 71046; 71275; 80048; 80053; 82803; 83880; 84484; 85007; 85025; 85027; 85378; 85610; 87070; 87205; 87581; 87632; 87635; 87798; 93005; 94640; 94667; 94761; 99291; J0574; J0696; J1100; J1650; J7120; J7613; J7620; Q9967